=== PATIENT | female | born 1980 | race Caucasian/White ===

== ENCOUNTER → 2016-11-18 | Outpatient (CLI) | payer OTHER ==
--- NOTE | 2016-11-18 13:02 | US ---
EXAMINATION TYPE: US OB >= 14 wk fetus DATE OF EXAM: 11/18/2016 12:50 PM COMPARISON: None CLINICAL HISTORY: Z36 Confirm Dates Check viability, first ultrasound with this . Unknown d ates-- sometime July or early August. TECHNIQUE: Transabdominal (TA) GESTATIONAL AGE / DATING Dates by LMP: Unknown Dates by Current Scan: (16 weeks/5 days) EDC: 04/30/2017 SURVEY IUP: Single PLACENTA: Posterior/fundal PREVIA: No Previa KARINA: 11.2 cm Normal CERVICAL LENGTH (transabdominal: norm > 3.0cm): 3.6 cm BIOMETRY PRESENTATION: Breech LIE: Oblique BPD: 3.6 cm 17 weeks / 0 days HC: 13.2 cm 16 weeks / 6 days AC: 10.7 cm 16 weeks / 4 days FL: 2.1 cm 14 weeks / 5 days ESTIMATED WEIGHT IN GRAMS: 155.9 grams ESTIMATED WEIGHT IN LBS/OZS: 0 lbs. 5 oz. WEIGHT PERCENTAGE BASED ON ESTABLISHED DATES: No established dates HC/AC: 1.2 FL/AC: 19.1 HEART RATE: 152 bpm RHYTHM: Normal TECHNOLOGIST IMPRESSION: Live single IUP measuring 16 weeks 5 days. Both adnexa appear within bree l limits. IMPRESSION: Mckeon fetus present in a breech presentation with a gestational age of 16 weeks 5 days +/- 12 day s. Estimated date of confinement based on this examination is 04/30/2017
[2016-11-18 13:32] LABS: CH 32.1; CHCM 34.7; HCT 40.6 % (34.0-46.0); HDW 2.98; HGB 13.6 gm/dL (11.4-16.0); MCH 31.2 pg (25.0-35.0); MCHC 33.6 g/dL (31.0-37.0); MCV 92.9 fL (80.0-100.0); Mean Platelet Volume 7.4; RBC 4.38 m/uL (3.80-5.40); RDW 13.1 % (11.5-15.5); WBC 7.9 k/uL (3.8-10.6)
[2016-11-18 13:42] LABS: Glucose 71 mg/dL (74-99); Non-African American GFR(MDRD) >60 (>60 ml/min/1.73 sqM)
[2016-11-18 14:14] LABS: Hepatitis B Surface Ag Index 0.08
[2016-11-19 05:31] LABS: Toxoplasma Antibody (IgG) <3.0 IU/mL (<7.2)
== END | disposition home or self-care (01) ==
LOC: RADUSWWP 12:16
PROVIDERS: ATTEND Obstetrics & Gynecology
DX: Z36 Encounter for antenatal screening of mother (principal); Z3A.16 16 weeks gestation of pregnancy
CPT/HCPCS: 36415; 76805; 82565; 82947; 85027; 86762; 86777; 86778; 86780; 86850; 86900; 86901; 87340

== ENCOUNTER → 2017-01-17 | Outpatient (CLI) | payer OTHER ==
[2017-01-17 08:40] LABS: CH 32.6; CHCM 33.9; HCT 39.6 % (34.0-46.0); HDW 2.85; HGB 13.2 gm/dL (11.4-16.0); MCH 32.3 pg (25.0-35.0); MCHC 33.3 g/dL (31.0-37.0); Mean Platelet Volume 7.7; RBC 4.08 m/uL (3.80-5.40); RDW 13.5 % (11.5-15.5); WBC 9.1 k/uL (3.8-10.6)
== END | disposition home or self-care (01) ==
LOC: LABWHC1 06:56
PROVIDERS: ATTEND Obstetrics & Gynecology
DX: Z34.82 Encounter for supervision of other normal pregnancy, second trimester (principal); Z3A.00 Weeks of gestation of pregnancy not specified
CPT/HCPCS: 36415; 82950; 85027

== ENCOUNTER 2017-04-15 07:04 | Inpatient (IN) | payer OTHER ==
[2017-04-15] MEDS ORDERED: CARBOPROST TROMETHAMINE 250 MCG/ML 1 ML AMP IM PRN (07:19)
[2017-04-15] MEDS ORDERED: TERBUTALINE 1 MG/ML VIAL SQ PRN (07:19)
[2017-04-15] MEDS ORDERED: LIDOCAINE 1% (PF) 10 MG/ML (30 ML SDV) SQ PRN (07:19)
[2017-04-15] MEDS ORDERED: OXYTOCIN 10 UNIT/ML 1 ML VIAL IM PRN (07:19)
[2017-04-15] MEDS ORDERED: METHYLERGONOVINE 0.2 MG/ML 1 ML AMP IM PRN (07:19)
--- NOTE | 2017-04-15 07:28 | P.HPOB ---
History of Present Illness H&P Date: 04/15/17 Chief Complaint: Contractions and leaking fluid. This patient is a pleasant 36-year-old 2 para 1 female estimated date of confinement 04/30/2017 estimated gestational age 37-6/7 weeks gestation who is admitted to labor and delivery with complaints of contractions and leaking of fluid since 6 this morning. Patient's found to be 8 cm dilated in active labor. care has been uncomplicated. Review of Systems Constitutional: Denies chills, Denies fever Ears, nose, mouth and throat: Denies headache, Denies sore throat Cardiovascular: Denies chest pain, Denies shortness of breath Respiratory: Denies cough Gastrointestinal: Reports heartburn Genitourinary: Reports Menstruation: Reports amenorrhea Musculoskeletal: Denies myalgias Past Medical History Past Medical History: No Reported History History of Any Multi-Drug Resistant Organisms: None Reported Past Surgical History: No Surgical Hx Reported Past Anesthesia/Blood Transfusion Reactions: No Reported Reaction Past Psychological History: No Psychological Hx Reported Smoking Status: Former smoker Past Alcohol Use History: None Reported Past Drug Use History: None Reported - Past Family History Mother Family Medical History: Deep Vein Thrombosis (DVT) Medications and Allergies Allergies Allergy/AdvReac Type Severity Reaction Status Date / Time No Known Allergies Allergy Verified 08/25/15 04:22 Exam - OBG Physical Exam Abdomen: bowel sounds normal, no diffuse tenderness, no bruit present, no guarding noted, no hepatomegaly, no splenomegaly, no mass Vulva: both: normal Vagina: normal moisture, no discharge Cervix: no lesion (Cervix is 8 cm dilated with gross rupture membranes.), no discharge Uterus: enlarged Results blood work shows she is B positive, rubella immune, RPR nonreactive, hepatitis B negative, ultrasounds have been normal, group B strep was negative, Glucola was normal. Assessment and Plan (1) Third trimester Narrative/Plan: This is a pleasant 36-year-old 2 para 1 female 37-6/7 weeks gestation with spontaneous rupture membranes in active labor. Plan is anticipate normal vaginal delivery. Status: Acute (2) Normal labor Status: Acute
[2017-04-15] MEDS ORDERED: LACTATED RINGERS 1,000 ML IV SCH (07:30)
[2017-04-15 07:39] LABS: Basophils % (A) 0 %; CH 33.3; CHCM 35.3; Eosinophils # (A) 0.1 k/uL (0-0.7); Eosinophils % (A) 1 %; HDW 3.03; HGB 13.7 gm/dL (11.4-16.0); Luc # (Auto) 0.21; Luc % (Auto) 2; Lymphocytes # (A) 2.3 k/uL (1.0-4.8); Lymphocytes % (A) 21 %; MCH 31.7 pg (25.0-35.0); MCHC 33.4 g/dL (31.0-37.0); MCV 94.9 fL (80.0-100.0); Mean Platelet Volume 9.6; Monocytes # (A) 0.4 k/uL (0-1.0); Monocytes % (A) 3 %; Neutrophils # (A) 8.2 k/uL (1.3-7.7); Neutrophils % (A) 73 %; RBC 4.32 m/uL (3.80-5.40); RDW 14.6 % (11.5-15.5); WBC 11.2 k/uL (3.8-10.6)
[2017-04-15] MEDS ORDERED: diphenhydrAMINE 25 MG CAP PO PRN (07:52)
[2017-04-15] MEDS ORDERED: SIMETHICONE 80 MG CHEWABLE PO PRN (07:52)
[2017-04-15] MEDS ORDERED: HYDROCORTISONE 2.5% RECTAL CREAM 30 GM TUBE RECTAL PRN (07:52)
[2017-04-15] MEDS ORDERED: WITCH HAZEL 1 EACH MED..PAD TOPICAL PRN (07:52)
[2017-04-15] MEDS ORDERED: BENZOCAINE/MENTHOL SPRAY 1 GM/SPRAY AEROSOL TOPICAL PRN (07:52)
[2017-04-15] MEDS ORDERED: diphenhydrAMINE 50 MG/ML 1 ML VIAL IVP PRN (07:52)
[2017-04-15] MEDS ORDERED: ZOLPIDEM 5 MG TAB PO PRN (07:52)
[2017-04-15] MEDS ORDERED: Acetaminophen-Codeine 300-30mg TAB PO PRN ×2 (07:52)
[2017-04-15] MEDS ORDERED: ACETAMINOPHEN TAB 325 MG TAB PO PRN (07:52)
[2017-04-15] MEDS ORDERED: BISACODYL 10 MG SUPP RECTAL PRN (07:52)
[2017-04-15] MEDS ORDERED: LANOLIN CREAM 5 GM TUBE TOPICAL PRN (07:52)
--- NOTE | 2017-04-15 07:57 | P.PROBDLV ---
Vaginal Delivery Note - . Vaginal Delivery Note: Normal spontaneous vaginal delivery viable female Apgars 9 and 9 delivery time is 0740 hrs. Please see dictated H&P for intimate details of this patient's admission. In brief summary this is a pleasant 36-year-old 2 para 1 female 37-6/7 weeks gestation admitted to labor and delivery complaining of contractions and gush of fluid at 6:00 this morning. On admission patient is 8 cm dilated in active labor. Patient quickly goes to complete pushes the head to the perineum. Posterior perineum is supported and we have controlled delivery of the infant's head over the intact perineum. Mouth and nares are bulb suctioned. There is no evidence of a nuchal cord. With gentle downward traction we then have deliver the anterior posterior shoulder and rest this 's body. This is a vigorous viable female . Apgars are 9 and 9 delivery time was 0740 hrs. After delivery of the the umbilical cord is doubly clamped and cut appears to be trivascular. The placenta is then spontaneously delivered intact. Estimated blood loss is 150 mL. There are no lacerations and no repair. and mother stable delivery room. All counts are correct 3. There are no complications.
[2017-04-15] MEDS ORDERED: OXYTOCIN 20 UNITS/1000 ML NS 1,000 ML IV SCH (08:00)
[2017-04-15 08:36] VITALS: BMI 23.8
[2017-04-15] MEDS: SENNOSIDES-DOCUSATE SODIUM 1 EACH TAB PO SCH (20:14)
[2017-04-15] MEDS: IBUPROFEN 600 MG TAB PO PRN (21:17)
[2017-04-16] MEDS: IBUPROFEN 600 MG TAB PO PRN (06:25)
--- NOTE | 2017-04-16 06:33 | P.PNOBGVD ---
Subjective - Subjective Patient reports: Reports appetite normal, Reports voiding normally, Reports pain well controlled, Reports ambulating normally : doing well Objective - Latest Vital Signs Latest vital signs: Vital Signs Temp Pulse Resp BP Pulse Ox 04/16/17 04:00 98.3 F 70 20 115/71 99 04/16/17 00:00 98.1 F 70 20 136/69 100 04/15/17 20:00 98.1 F 69 18 112/71 97 04/15/17 16:00 98.1 F 61 18 103/58 04/15/17 12:53 98.4 F 62 18 97/60 04/15/17 11:00 98.0 F 04/15/17 09:45 82 18 114/68 98 04/15/17 09:30 82 18 103/65 04/15/17 09:20 83 20 108/69 04/15/17 09:05 75 20 112/67 04/15/17 08:50 77 18 117/77 04/15/17 08:30 84 18 116/58 04/15/17 08:20 74 18 113/62 04/15/17 07:30 97.8 F 56 L 18 95/57 98 Intake and Output 04/15/17 04/15/17 04/16/17 14:59 22:59 06:59 Intake Total 800 Balance 800 Intake: IV 800 Invasive Line 1 800 Other: # Voids 1 Weight 64.864 kg Patient Weight 04/16/17 06:59 Weight 64.864 kg - Exam Lungs: bilateral: normal Chest: Normal S1, Normal S2 Extremities: Present: normal Abdomen: Present: normal appearance, soft Uterus: Present: normal, firm - Labs Labs: Abnormal Lab Results - Last 24 Hours (Table) 04/15/17 Range/Units 07:30 WBC 11.2 H (3.8-10.6) k/uL Neutrophils # 8.2 H (1.3-7.7) k/uL Assessment and Plan (1) Third trimester Narrative/Plan: Post day #1. Patient is without complaints and wishes to go home. Vital signs are stable and she is afebrile. Uterus is firm nontender she's having normal lochia. My impression this is a normal course. Plan is continue routine care discharge home later today. Current Visit: Yes Status: Acute Code(s): Z34.93 - ENCNTR FOR SUPRVSN OF NORMAL PREG, UNSP, THIRD TRIMESTER SNOMED Code(s): 20520278 (2) Normal labor Current Visit: Yes Status: Acute Code(s): O80 - ENCOUNTER FOR FULL-TERM UNCOMPLICATED DELIVERY; Z37.9 - OUTCOME OF DELIVERY, UNSPECIFIED SNOMED Code(s ): 87986210
--- NOTE | 2017-04-16 06:37 | P.DS ---
Providers Date of admission: 04/15/17 07:18 Expected date of discharge: 04/16/17 Attending physician: Donny Piedra - Discharge Diagnosis(es) (1) Third trimester Current Visit: Yes Status: Acute (2) Normal labor Current Visit: Yes Status: Acute Hospital Course: Please see dictated H&P for intimate details of this patient's admission. Brief summary this pleasant 36-year-old 2 para 1 female 37-6/7 weeks gestation admitted to labor and delivery in active labor. Patient quickly goes on have a vaginal delivery viable female . Please see dictated delivery note. On day #1 this patient wishes to go home. She appears to be stable for discharge home to see me in 6 weeks. Procedures: Normal spontaneous vaginal delivery. Patient Condition at Discharge: Good Plan - Discharge Summary New Discharge Prescriptions: New Acetaminophen-Codeine 300-30mg [Tylenol w/codeine #3] 1 - 2 each PO Q4HR PRN #30 tab PRN Reason: Mild Pain exceeding Tylenol Ibuprofen [Motrin] 600 mg PO Q6HR PRN #40 tab PRN Reason: Mild Pain Or Fever >= 100.5 Discharge Medication List Acetaminophen-Codeine 300-30mg [Tylenol w/codeine #3] 1 - 2 each PO Q4HR PRN # 30 tab 04/16/17 [Rx] Ibuprofen [Motrin] 600 mg PO Q6HR PRN #40 tab 04/16/17 [Rx] Follow up Appointment(s)/Referral(s): Donny Piedra MD [STAFF PHYSICIAN] - 6 Weeks Patient Instructions/Handouts: Vaginal Delivery (DC) Activity/Diet/Wound Care/Special Instructions: No intercourse or anything per vagina for 6 weeks. Please call if any fever, chills, excessive vaginal bleeding, and/or abdominal pain. Discharge Disposition: HOME SELF-CARE
[2017-04-16 08:29] VITALS: BP 104/71; PULSE 68; RESP 16; TEMP 98.2
[2017-04-16] MEDS: SENNOSIDES-DOCUSATE SODIUM 1 EACH TAB PO SCH (10:08)
== END 2017-04-16 10:07 | disposition home or self-care (01) | DRG 775 ==
LOC: FBPOP 07:04 → 4FBP 07:18
PROVIDERS: ADMIT Obstetrics & Gynecology; ATTEND Obstetrics & Gynecology
PROC: 10E0XZZ Delivery of Products of Conception, External Approach (ICD-10-PCS; principal; 2017-04-15)
DX: O80 Encounter for full-term uncomplicated delivery (principal); Z87.891 Personal history of nicotine dependence; Z37.0 Single live birth; Z3A.37 37 weeks gestation of pregnancy; Z82.49 Family history of ischemic heart disease and other diseases of the circulatory system
CPT/HCPCS: 85025; 88307

== ENCOUNTER → 2018-12-04 | Outpatient (CLI) | payer OTHER ==
--- NOTE | 2018-12-04 11:48 | MM ---
Reason for exam: screening (asymptomatic). Baseline mammogram. History: Patient had first child at age 34. Family history of breast cancer in maternal grandmother. Taking hormonal contraceptives beginning at age 38. Physical Findings: Nurse did not find any significant physical abnormalities on exam. MG Screening Mammo w CAD Bilateral CC and MLO view(s) were taken. The breast tissue is extremely dense which could obscure a lesion on mammography. No significant new findings when compared with previous films. These results were verbally communicated with the patient and result sheet given to the patient on 12/04/18. ASSESSMENT: Benign, BI-RAD 2 RECOMMENDATION: Routine screening mammogram of both breasts at age 42.
== END | disposition home or self-care (01) ==
LOC: RADMAMWWP 10:51
PROVIDERS: ATTEND Obstetrics & Gynecology
DX: Z12.31 Encounter for screening mammogram for malignant neoplasm of breast (principal)
CPT/HCPCS: 77067

== ENCOUNTER → 2023-11-09 | Outpatient (CLI) | payer OTHER ==
--- NOTE | 2023-11-10 08:45 | MM ---
Reason for Exam: Screening (asymptomatic). Last screening mammogram was performed 12 month(s) ago. Patient History: Menarche at age 17. First Full-Term at age 34. Late child-bearing (after 32). Premenopausal. Currently using Hormonal Contraceptives, starting at age 38. Maternal grandmother had breast cancer. Last menstrual period: 10/24/2023 Risk Values: Lisa 5 year model risk: 0.8%. NCI Lifetime model risk: 12.4%. Prior Study Comparison: 12/04/2018 Bilateral Screening Mammogram, [facility]. 11/07/2022 Bilateral MG screening mammo w CAD, [facility]. Tissue Density: The breasts are extremely dense, which lowers the sensitivity of mammography. Findings: Analyzed By CAD. There is no suspicious group of microcalcifications or new suspicious mass in either breast. Overall Assessment: Negative, BI-RAD 1 Management: Screening Mammogram of both breasts in 1 year. . Patient should continue monthly self-breast exams. A clinical breast exam by your physician is recommended on an annual basis. This exam should not preclude additional follow-up of suspicious palpable abnormalities. Note on Lisa scores and lifetime risk: 1. A Lisa score greater than 3% is considered moderate risk. If this is the case, consider specialist referral to assess eligibility for a risk reducing agent. 2. If overall lifetime risk for the development of breast cancer is 20% or higher, the patient may qualify for future screening with alternating mammogram and breast MRI. Electronically signed and approved by: César Corey M.D. Radiologis
== END | disposition home or self-care (01) ==
LOC: RADMAMWWP 08:52
PROVIDERS: ATTEND Obstetrics & Gynecology
DX: Z12.31 Encounter for screening mammogram for malignant neoplasm of breast (principal); Z80.3 Family history of malignant neoplasm of breast
CPT/HCPCS: 77067